=== PATIENT | female | born 1965 | race Hispanic/Latino ===

== ENCOUNTER 2017-05-02 23:48 | Emergency (ER) | payer OTHER ==
[2017-05-03 00:55] VITALS: BMI 23.3
--- NOTE | 2017-05-03 01:06 | ED PDOC ---
Arrival/HPI - General Time Seen by Provider: 05/03/17 01:04 Historian: Patient - History of Present Illness Narrative History of Present Illness (Text): 05/03/17 01:06 Miguelina Lai is a 51 year old female who presents to the Emergency department complaining of right ankle pain. Patient states at 12:30 yesterday she rolled her right ankle while walking. Patient states tonight after wearing heeled shoes she began experiencing right ankle pain with associated swelling. Patient denies any weakness/numbness/tingling in the extremity, or any other complaints. Symptom Onset: Gradual Symptom Course: Unchanged Activities at Onset: Light Context: Walking Past Medical History - Provider Review Nursing Documentation Reviewed: Yes Family/Social History - Physician Review Nursing Documentation Reviewed: Yes Family/Social History: No Known Family HX Allergies/Home Meds Allergies/Adverse Reactions: Allergies Penicillins Allergy (Verified 05/03/17 00:56) RASH Sulfa (Sulfonamide Antibiotics) Allergy (Verified 05/03/17 00:55) RASH Home Medications: Home Meds Medication Instructions Recorded Confirmed Escitalopram [Lexapro] 10 mg PO DAILY 05/03/17 05/03/17 Levothyroxine [Synthroid] 125 mcg PO DAILY 05/03/17 05/03/17 Review of Systems - Physician Review All systems were reviewed & negative as marked: Yes - Review of Systems Cardiovascular: Normal Gastrointestinal: Normal Musculoskeletal: Arthralgias (+right ankle pain). absent: Back Pain, Neck Pain Skin: Normal. absent: Rash Neurological: Normal. absent: Headache, Dizziness Physical Exam Vital Signs Reviewed: Yes Vital Signs Temp Pulse Resp BP Pulse Ox 05/03/17 02:24 79 140/68 99 05/03/17 01:08 98.1 F 77 15 125/51 L 98 Temperature: Afebrile Blood Pressure: Normal Pulse: Regular Respiratory Rate: Normal Appearance: Positive for: Well-Appearing, Non-Toxic, Comfortable Pain Distress: None Mental Status: Positive for: Alert and Oriented X 3 - Systems Exam Head: Present: Atraumatic, Normocephalic Pupils: Present: PERRL Extroacular Muscles: Present: EOMI Conjunctiva: Present: Normal Lower Extremity: Present: NORMAL PULSES, Tenderness (Right foot tenderness), Swelling (Right foot swelling), Neurovascularly Intact, Capillary Refill < 2 s. No: Edema, Cyanosis, Erythema, Deformity, Temperature Abnormalties Neurological: Present: GCS=15, CN II-XII Intact, Speech Normal Skin: Present: Warm, Dry, Normal Color. No: Rashes Psychiatric: Present: Alert, Oriented x 3, Normal Insight, Normal Concentration Medical Decision Making ED Course and Treatment: 05/03/17 01:06 Impression: 51 year old female complaining of right ankle pain/swelling s/p injury yesterday Plan: -- Naproxen -- Right Ankle XR -- Right Foot XR -- Reassess and disposition Progress Notes: 05/03/17 02:03 Reviewed radiology, Right Ankle XR shows no evidence of acute fracture. Right Foot XR shows no evidence of acute fracture. Pt will be placed in splint and given crutches. - RAD Interpretation Radiology Orders: 05/03/17 01:06 ANKLE RIGHT 3 VIEWS ROUTINE [RAD] Stat FOOT RIGHT 3 VIEWS ROUTINE [RAD] Stat Firearms Specialist: ED Physician - Medication Orders Current Medication Orders: Naproxen (Anaprox Ds) 550 mg PO BID MED Last Admin: 05/03/17 01:28 Dose: 550 mg Discontinued Medications Oxycodone/Acetaminophen (Percocet 5/325 Mg Tab) 1 tab PO STAT STA Stop: 05/03/17 02:14 Last Admin: 05/03/17 02:23 Dose: 1 tab - Scribe Statement The provider has reviewed the documentation as recorded by the Boyd Raya Provider Attestation: All medical record entries made by the Lyibgo were at my direction and personally dictated by me. I have reviewed the chart and agree that the record accurately reflects my personal performance of the history, physical exam, medical decision making, and the department course for this patient. I have also personally directed, reviewed, and agree with the discharge instructions and disposition. Disposition/Present on Arrival - Present on Arrival Any Indicators Present on Arrival: No - Disposition Have Diagnosis and Disposition been Completed?: Yes Diagnosis: Foot sprain Disposition: HOME/ ROUTINE Disposition Time: 02:00 Condition: STABLE Discharge Instructions (ExitCare): Ankle Sprain (ED), Foot Sprain (ED) Additional Instructions: please follow up with specialist. return to er with worsening symptoms or concerns. Prescriptions: Naproxen 500 mg PO BID PRN #14 tab PRN Reason: Pain, Mild (1-3) oxyCODONE/Acetaminophen [Percocet 5/325 mg Tab] 1 ea PO Q6 PRN #10 tab PRN Reason: Pain, Severe (8-10) Referrals: Boaz David DO [Staff Provider] - Follow up with primary Forms: WORK NOTE
[2017-05-03 01:09] VITALS: RESP 15; TEMP 98.1
[2017-05-03] MEDS ORDERED: Naproxen 550 mg Tab PO SCH (01:15)
[2017-05-03] MEDS ORDERED: Oxycodone/Acetaminophen 5/325 mg Tab PO STA (02:13)
[2017-05-03 02:24] VITALS: BP 140/68; PULSE 79; O2SAT 99
--- NOTE | 2017-05-03 09:59 | RAD ---
PROCEDURE: Right Foot Radiographs. HISTORY: trauma COMPARISON: None. FINDINGS: BONES: Normal. No fracture. JOINTS: Normal. SOFT TISSUES: Normal. OTHER FINDINGS: None. IMPRESSION: Normal right foot radiographs.
--- NOTE | 2017-05-03 10:01 | RAD ---
PROCEDURE: Right Ankle Radiographs. HISTORY: trauma COMPARISON: None FINDINGS: BONES: Normal. No fracture. JOINTS: Normal. No osteoarthritis. Ankle mortise maintained. Talar dome intact SOFT TISSUES: Normal. OTHER FINDINGS: None. IMPRESSION: Normal right ankle radiographs.
== END 2017-05-03 02:59 | disposition home or self-care (01) ==
LOC: ED 23:48
DX: S93.601A Unspecified sprain of right foot, initial encounter (principal); X58.XXXA Exposure to other specified factors, initial encounter; Y93.01 Activity, walking, marching and hiking